=== PATIENT | male | born 1990 | race Caucasian/White ===

== ENCOUNTER 2023-05-13 15:58 | Emergency (ER) | payer MEDICAID ==
[~2023-05-13] VITALS: Ht 172.7 cm; Wt 74.0 kg
[2023-05-13 16:04] VITALS: O2SAT 99
[2023-05-13] MEDS ORDERED: KETOROLAC 30MG/ML VIAL IM NR (20:30)
[2023-05-13 20:39] VITALS: BP 129/81
[2023-05-13 20:40] VITALS: PULSE 60; RESP 18; TEMP 98
== END 2023-05-13 20:40 | disposition home or self-care (01) ==
LOC: ER 15:58
DX: S67.21XA Crushing injury of right hand, initial encounter (principal); X58.XXXA Exposure to other specified factors, initial encounter; Y93.89 Activity, other specified; Y92.89 Other specified places as the place of occurrence of the external cause; Y99.8 Other external cause status
CPT/HCPCS: 73130; 96372; 99283; J1885; Z7610